=== PATIENT | female | born 1950 | race American Indian/Alaskan Native ===

== ENCOUNTER 2016-06-10 12:50 | Emergency (ER) | payer OTHER ==
[2016-06-10 14:45] VITALS: BP 132/84
--- NOTE | 2016-06-10 21:42 | Emergency Department Report ---
Entered by RANI GTZ, acting as scribe for MADHAVI OROZCO NP. - General Chief complaint: Skin/Abscess/Foreign Body Stated complaint: LT NECK SWELLING Source: patient Mode of arrival: Ambulatory Limitations: No Limitations - History of Present Illness Initial comments: 65 year old female with a PMHx of fibromyalgia, breast cancer, and arthritis presents to the ED c/o of left facial swelling that began this afternoon at 13: 00. Rates severity 0/10 and describes the left facial swelling as intermittent in quality. Denies fever, chills, nausea, tenderness, vomiting, chest pain, and SOB. Denies any allergies or new diets. NKDA. HAYDEN complaint: other (swelling to left mandibular area) -: This afternoon Time: 13:00 Tetanus Up to Date: unsure Location: face (left mandibular area) Severity: mild Severity scale (0 -10): 0 Consistency: intermittent Improves with: none Worsens with: none Context: none Associated symptoms: denies other symptoms, other (left facial swelling) Treatments Prior to Arrival: none - Related Data Previous Rx's Medication Instructions Recorded Last Taken Type Prednisone [predniSONE] 40 mg PO QDAY 5 Days 06/10/16 Unknown Rx Allergies Allergy/AdvReac Type Severity Reaction Status Date / Time No Known Allergies Allergy Unverified 06/10/16 12:58 Abscess Boil HPI - HPI Chief Complaint: Skin/Abscess/Foreign Body Stated Complaint: LT NECK SWELLING Duration: Today (13:00) Location: Other (left mandibular area) Severity: Mild History: No Fever, No Pain, No Purulent Drainage, No Numbness, No Foreign Body, No Previous History, No Insect Bite Home Medications: Previous Rx's Medication Instructions Recorded Last Taken Type Prednisone [predniSONE] 40 mg PO QDAY 5 Days 06/10/16 Unknown Rx Allergies/Adverse Reactions: Allergies Allergy/AdvReac Type Severity Reaction Status Date / Time No Known Allergies Allergy Unverified 06/10/16 12:58 ED Review of Systems Comment: All other systems reviewed and negative Constitutional: denies: chills, fever, other (tingling) Eyes: denies: eye pain, vision change ENT: other (minimal swelling to left mandibular area). denies: throat pain Respiratory: denies: cough, orthopnea, shortness of breath, SOB with exertion, SOB at rest, stridor, wheezing Cardiovascular: denies: chest pain, palpitations, dyspnea on exertion, orthopnea , syncope Endocrine: no symptoms reported Gastrointestinal: denies: abdominal pain, nausea, vomiting Musculoskeletal: joint swelling (left facial swelling) Skin: denies: rash Neurological: denies: headache, numbness ED Past Medical Hx - Past Medical History Hx of Cancer: Yes (Breast) Hx Arthritis: Yes Additional medical history: Fibromyalgia - Surgical History Past Surgical History?: No - Social History Smoking Status: Never Smoker Substance Use Type: Alcohol - Medications Home Medications: Home Medications Medication Instructions Recorded Confirmed Last Taken Type Prednisone [predniSONE] 40 mg PO QDAY 5 Days 06/10/16 Unknown Rx ED Physical Exam - General Limitations: No Limitations General appearance: alert, in no apparent distress - Head Head exam: Present: atraumatic, normocephalic - Eye Eye exam: Present: normal appearance, EOMI Pupils: Present: normal accommodation - ENT ENT exam: Present: normal exam, mucous membranes moist, other (minimal swelling to left mandibular area) - Expanded ENT Exam Expanded Ear exam: Present: normal external inspection Mouth exam: Present: normal external inspection, other (minimal swelling to left mandibular area) Teeth exam: Present: normal inspection Throat exam: Positive: normal inspection - Neck Neck exam: Present: normal inspection - Respiratory Respiratory exam: Present: normal lung sounds bilaterally. Absent: respiratory distress, wheezes, rales, rhonchi, stridor - Cardiovascular Cardiovascular Exam: Present: regular rate, normal rhythm. Absent: systolic murmur, diastolic murmur, rubs, gallop - GI/Abdominal GI/Abdominal exam: Present: soft, normal bowel sounds. Absent: distended, tenderness, guarding, rebound, rigid - Extremities Exam Extremities exam: Present: normal inspection, full ROM, normal capillary refill. Absent: tenderness, pedal edema, joint swelling, calf tenderness - Back Exam Back exam: Present: normal inspection, full ROM. Absent: tenderness, CVA tenderness (R), CVA tenderness (L) - Neurological Exam Neurological exam: Present: alert, oriented X3, CN II-XII intact, normal gait - Psychiatric Psychiatric exam: Present: normal affect, normal mood - Skin Skin exam: Present: warm, dry, intact. Absent: rash - Other Other exam information: No pus, drainge, or swelling in the oropharynx. No signs of gingivitis. No dental caries present. ED Course Vital Signs 06/10/16 12:58 Temperature 98.0 F Pulse Rate 102 H Respiratory 20 Rate Blood Pressure 135/91 O2 Sat by Pulse 99 Oximetry Vital Signs 06/10/16 06/10/16 12:58 14:39 Temperature 98.0 F Pulse Rate 102 H 76 Respiratory 20 Rate Blood Pressure 135/91 O2 Sat by Pulse 99 Oximetry - Reevaluation(s) Reevaluation #1: 06/10/16 14:28 Dr. Clayton has been consulted and assessed the patient. Agrees with d/c and plan of care for d/c. No further testing required at this visit. ED Medical Decision Making - Medical Decision Making Ed course: 65 year old female that presents with left swelling of the parotid gland 1- after full assessment with Dr. Clayton, we came to conclusion not to perform further testing. 2-Patient received Solu-Medrol IM 40 mg in the ED. 3- patient received prednisone 40 mg by mouth for 5 days at the time of discharge. 4- I instructed the patient to follow up with her primary care doctor in 2-3 days or if symptoms worsen to report back to emergency room/primary-care doctor. 5- at the time of discharge the patient does not seem toxic or ill in appearance. No signs of distress noted. Patient agrees to discharge plan and treatment. No further questions noted by the patient. ED Disposition Clinical Impression: Enlarged parotid gland Disposition: DISCHARGED TO HOME OR SELFCARE Is pt being admited?: No Does the pt Need Aspirin: No Condition: Stable Instructions: Prednisone (By mouth) Additional Instructions: Follow-up with your primary care doctor in 2-3 days or if symptoms worsen report bouts emergency room/primary care doctor. Take prednisone as prescribed for 5 days. Prescriptions: Prednisone [predniSONE] 40 mg PO QDAY 5 Days Referrals: WOOD BERNAL MD [Primary Care Provider] - 3-5 Days ANDREWS ROGERS MD [Referring] - 3-5 Days DENIS FLORENTINO MD [Referring] - 3-5 Days ANJELICA CARTY MD [Referring] - 3-5 Days VU ZUNIGA MD [Referring] - 3-5 Days [facility] [Outside] - 3-5 Days [facility] [place] [Outside] - 3-5 Days Forms: Work/School Release Form(ED) This documentation as recorded by the scribTRESA boyd JASMINE,accurately reflects the service I personally performed and the decisions made by me,MADHAVI OROZCO, MAGALI.
== END 2016-06-10 14:44 | disposition home or self-care (01) ==
LOC: ED 12:50
DX: R59.9 Enlarged lymph nodes, unspecified (principal)
CPT/HCPCS: 96372; 99282; J2920

== ENCOUNTER 2016-11-08 14:44 | Emergency (ER) | payer OTHER ==
--- NOTE | 2016-11-08 14:57 | Emergency Department Report ---
Stated Complaint: PAIN IN GROIN Time Seen by Provider: 11/08/16 14:52 - HPI History of Present Illness: PT thinks she is having arthritis pain in her groin. PT states that she had XRs last week. - ROS Review of Systems: - fever - dysuria + lbp - rash - Exam Physical Exam: pt looks well, nontoxic abd soft and not tender MSE screening note: Focused history and physical exam performed. Due to findings the following was ordered: lab ED Disposition for MSE Condition: Stable
[2016-11-08 15:00] VITALS: BP 118/69
[2016-11-08 15:26] LABS: Bilirubin,Urine NEG (Negative); Blood,Urine SM (Negative); Ketones,Urine NEG (Negative); Leukocyte Esterase,Urine LG (Negative); Mucus,Urine FEW /HPF; Nitrite,Urine NEG (Negative); Protein,Urine <15 mg/dL mg/dL (Negative); Urobilinogen,Urine < 2.0 mg/dL (<2.0)
--- NOTE | 2016-11-08 17:39 | Emergency Department Report ---
ED Female HPI - General Chief complaint: Pain General Stated complaint: PAIN IN GROIN Time Seen by Provider: 11/08/16 14:52 Source: patient Mode of arrival: Ambulatory Limitations: No Limitations - History of Present Illness Initial comments: 66-year-old female presents with complaint of one week of slight suprapubic discomfort and slight increased urinary frequency. Patient is unsure if she has had some vaginal discharge. Patient denies abdominal pain nausea vomiting flank pain. Patient is awake alert and oriented 3 not in acute distress nontoxic-appearing MD Complaint: pelvic pain Onset/Timin -: week(s) Location: suprapubic Radiation: non-radiating Severity: mild Quality: burning Consistency: intermittent Improves with: none Worsens with: none Are you Now?: No - Related Data Previous Rx's Medication Instructions Recorded Last Taken Type Prednisone [predniSONE] 40 mg PO QDAY 5 Days 06/10/16 Unknown Rx Nitrofurantoin [place]/M-Cryst 100 mg PO Q12HR #14 capsule 11/08/16 Unknown Rx [Macrobid CAP] Allergies Allergy/AdvReac Type Severity Reaction Status Date / Time No Known Allergies Allergy Unverified 06/10/16 12:58 ED Review of Systems ROS: Stated complaint: PAIN IN GROIN Other details as noted in HPI Constitutional: denies: chills, fever Eyes: denies: eye pain, eye discharge, vision change ENT: denies: ear pain, throat pain Respiratory: denies: cough, shortness of breath, wheezing Cardiovascular: denies: chest pain, palpitations Endocrine: no symptoms reported Gastrointestinal: denies: abdominal pain, nausea, diarrhea Genitourinary: urgency (for 1 week). denies: dysuria, discharge Musculoskeletal: denies: back pain, joint swelling, arthralgia Skin: denies: rash, lesions Neurological: denies: headache, weakness, paresthesias Psychiatric: denies: anxiety, depression Hematological/Lymphatic: denies: easy bleeding, easy bruising ED Past Medical Hx - Past Medical History Previous Medical History?: Yes Hx of Cancer: Yes (breast) Hx Arthritis: Yes Additional medical history: Fibromyalgia, - Surgical History Past Surgical History?: Yes Additional Surgical History: Left chest port 2007 for chemo - Social History Smoking Status: Former Smoker Substance Use Type: Alcohol, Prescribed - Medications Home Medications: Home Medications Medication Instructions Recorded Confirmed Last Taken Type Prednisone [predniSONE] 40 mg PO QDAY 5 Days 06/10/16 Unknown Rx Nitrofurantoin [place]/M-Cryst 100 mg PO Q12HR #14 capsule 11/08/16 Unknown Rx [Macrobid CAP] ED Physical Exam - General Limitations: No Limitations General appearance: alert, in no apparent distress - Head Head exam: Present: atraumatic, normocephalic - Eye Eye exam: Present: normal appearance, PERRL, EOMI - ENT ENT exam: Present: mucous membranes moist - Neck Neck exam: Present: normal inspection - Respiratory Respiratory exam: Present: normal lung sounds bilaterally. Absent: respiratory distress - Cardiovascular Cardiovascular Exam: Present: regular rate, normal rhythm. Absent: systolic murmur, diastolic murmur, rubs, gallop - GI/Abdominal GI/Abdominal exam: Present: soft (abdomen soft nontender nondistended all 4 quadrants), normal bowel sounds - External exam: Present: normal external exam Speculum exam: Present: normal speculum exam Bi-manual exam: Present: normal bi-manual exam - Extremities Exam Extremities exam: Present: normal inspection - Back Exam Back exam: Present: normal inspection - Neurological Exam Neurological exam: Present: alert, oriented X3, CN II-XII intact, normal gait - Psychiatric Psychiatric exam: Present: normal affect, normal mood - Skin Skin exam: Present: warm, dry, intact, normal color. Absent: rash ED Course Vital Signs 11/08/16 14:55 Temperature 98.2 F Pulse Rate 94 H Respiratory 20 Rate Blood Pressure 118/69 O2 Sat by Pulse 97 Oximetry ED Medical Decision Making - Medical Decision Making A/P: Cystitis 1-urinalysis shows WBCs, Cossette esterase, in context of suprapubic discomfort and increased urinary frequency will treat empirically with Macrobid for UTI, urine culture sent 2-wet prep unremarkable 3- case discussed with ED attending before discharge Critical care attestation.: If time is entered above; I have spent that time in minutes in the direct care of this critically ill patient, excluding procedure time. ED Disposition Clinical Impression: Cystitis Disposition: DC-01 TO HOME OR SELFCARE Is pt being admited?: No Does the pt Need Aspirin: No Condition: Stable Instructions: Urinary Tract Infection in Women (ED) Prescriptions: Nitrofurantoin [place]/M-Cryst [Macrobid CAP] 100 mg PO Q12HR #14 capsule Referrals: [facility] [Outside] - 3-5 Days [facility] [Outside] - 3-5 Days [facility] [Provider Group] - 3-5 Days Time of Disposition: 18:47
== END 2016-11-08 18:54 | disposition home or self-care (01) ==
LOC: ED 14:44
DX: N30.90 Cystitis, unspecified without hematuria (principal)
CPT/HCPCS: 81001; 87210

== ENCOUNTER 2018-11-26 12:25 | Emergency (ER) | payer OTHER ==
[2018-11-26 12:41] VITALS: BP 131/80
--- NOTE | 2018-11-26 12:42 | Emergency Department Report ---
Blank Doc - Documentation Documentation: 68-year-old female that presents with left sided neck pain. Denies any injuries or trauma. This initial assessment/diagnostic orders/clinical plan/treatment(s) is/are subject to change based on patient's health status, clinical progression and re- assessment by fellow clinical providers in the ED. Further treatment and workup at subsequent clinical providers discretion. Patient/guardians urged not to elope from the ED as their condition may be serious if not clinically assessed and managed. Initial orders include: 1- Patient sent to [facility] for further evaluation and treatment
[2018-11-26] MEDS ORDERED: FLEXERIL PO ONE (15:55)
[2018-11-26] MEDS ORDERED: TORADOL IM ONE (15:56)
--- NOTE | 2018-11-26 16:01 | Emergency Department Report ---
ED Neck Pain HPI Chief Complaint: Neck Pain/Injury Stated Complaint: LFT SIDE NECK SPASM/PAIN Time Seen by Provider: 11/26/18 12:41 Neck Pain Location: Lateral Neck (left side) Severity: moderate Mechanism: Awkward Position, Unsure Symptoms: Yes Pain with Movement, No Radiation to Left Upper Ext, No Radiation to Right Upper Ext, No Numbness, No Weakness, No Previous History Other History: Is a 68-year-old female who presents to ED complaining of left- sided neck pain that began today morning when she woke up. Patient states that she currently takes medication for muscle spasm and asthma shown any relief. Patient denies any trauma injuries to the neck. Patient states that neck is painful with movements of the left. ED Review of Systems ROS: Stated complaint: LFT SIDE NECK SPASM/PAIN Other details as noted in HPI Comment: All other systems reviewed and negative ED Past Medical Hx - Past Medical History Previous Medical History?: Yes Hx Arthritis: Yes Additional medical history: Fibromyalgia, - Surgical History Past Surgical History?: Yes Additional Surgical History: Left chest port 2008 for chemo - Social History Smoking Status: Former Smoker Substance Use Type: Alcohol - Medications Home Medications: Home Medications Medication Instructions Recorded Confirmed Last Taken Type predniSONE 40 mg PO QDAY 5 Days tab 06/10/16 Unknown Rx Nitrofurantoin [place]/M-Cryst 100 mg PO Q12HR #14 capsule 11/08/16 Unknown Rx [Macrobid CAP] Benzonatate [Tessalon Perles] 100 mg PO Q8HR #30 capsule 11/26/18 Unknown Rx Cyclobenzaprine [Flexeril] 10 mg PO QHS PRN #20 tablet 11/26/18 Unknown Rx Neck Pain Exam - Exam General: Vital signs noted. No distress. Alert and acting appropriately. HEENT: No Facial Pain, No Scalp Tenderness, No Contusion, No Abrasion, No Laceration Neck Pain: Yes Left Paraspinal Tenderness, Yes Pain with Rotation Left, No Midline Tenderness, No Right Paraspinal Tenderness, No Right Trapezius Tenderness, No Left Trapezius Tenderness, No Pain with Rotation Right, No Pain with Extension, No Pain with Flexion, No pain with R Lateral Flexion, No Pain with L Lateral Flexion Chest: Yes Clear Lung Sounds, No Pain with Respirations Heart: Yes Regular, No Murmur Back: No Thoracic Tenderness, No Lumbar Tenderness Neuro: No Numbness, No Weakness, No Normal Reflexes, No Radicular Deficits Exam: Patent airways. Patient on the neurological deficit. No facial droop., ED Course Vital Signs 11/26/18 12:36 Temperature 98.3 F Pulse Rate 104 H Respiratory 16 Rate Blood Pressure 131/80 O2 Sat by Pulse 98 Oximetry ED Medical Decision Making - Medical Decision Making 68-year-old female presents with cervical muscle strain/spasm Critical care attestation.: If time is entered above; I have spent that time in minutes in the direct care of this critically ill patient, excluding procedure time. ED Disposition Clinical Impression: Cervical muscle strain, Neck muscle spasm Disposition: DC- TO HOME OR SELFCARE Is pt being admited?: No Does the pt Need Aspirin: No Condition: Stable Instructions: Muscle Strain (ED), Trigger Point Pain (ED), Cervical Radiculopathy (ED) Additional Instructions: Make sure to follow up with the primary care physician as discussed. Take all your medications as you've been prescribed. If you have any worsening symptoms or develop new symptoms please return to ED immediately. Prescriptions: Cyclobenzaprine [Flexeril] 10 mg PO QHS PRN #20 tablet PRN Reason: Muscle Spasm Benzonatate [Tessalon Perles] 100 mg PO Q8HR #30 capsule Referrals: ,[facility] [Other] - 3-5 Days CYN CALLEJAS MD [Staff Physician] - 3-5 Days Forms: Accompanied Note, Work/School Release Form(ED) Time of Disposition: 16:53
== END 2018-11-26 17:47 | disposition home or self-care (01) ==
LOC: ED 12:25
DX: S16.1XXA Strain of muscle, fascia and tendon at neck level, initial encounter (principal); M62.838 Other muscle spasm; M19.90 Unspecified osteoarthritis, unspecified site; Z87.891 Personal history of nicotine dependence; Z98.890 Other specified postprocedural states; Z79.899 Other long term (current) drug therapy; X58.XXXA Exposure to other specified factors, initial encounter; Y93.89 Activity, other specified; Y92.89 Other specified places as the place of occurrence of the external cause; Y99.8 Other external cause status
CPT/HCPCS: 96372; 99283; J1885

== ENCOUNTER 2019-04-02 09:39 | Emergency (ER) | payer OTHER ==
[2019-04-02 09:52] VITALS: BP 103/66
[2019-04-02] MEDS ORDERED: predniSONE 20 MG TAB PO ONE (12:25)
[2019-04-02] MEDS ORDERED: KETOROLAC 60 MG/2 ML INJ IM ONE (12:25)
--- NOTE | 2019-04-02 13:14 | Emergency Department Report ---
ED Back Pain/Injury HPI - General Chief Complaint: Extremity Injury, Lower Stated Complaint: HIP PAIN Time Seen by Provider: 04/02/19 11:48 Source: patient Limitations: No Limitations - History of Present Illness Initial Comments: This is a 68-year-old female nontoxic, well nourished in appearance, no acute signs of distress presents to the ED with c/o of acute on chronic lower back pain. Patient stated sees a pain specialist for herniated disc in the lumbar spine. Patient states has history of sciatica nerve pain which is similar symptoms as today. Patient states that pain radiates through to his right lower extremity. Patient denies any trauma. Denies any bladder or bowel instability. Patient denies any urinary symptoms. Denies any fever, chills, nausea, vomitin g, headache, stiff neck, chest pain or shortness of breath. Patient denies any numbness or tingling. Denies any drug allergies. MD Complaint: back pain -: days(s) Similar Symptoms Previously: Yes Radiation: right leg Severity: mild Severity scale (0 -10): 8 Quality: aching Consistency: intermittent Improves With: immobilization, sitting upright Worsens With: movement, walking Context: while lifting, turning/twisting Associated Symptoms: denies other symptoms. denies: confusion, weakness, chest pain, numbness, difficulty walking, cough, difficulty urinating, diaphoresis, incontinence, fever/chills, constipation, headaches, abdominal pain, loss of appetite, malaise, nausea/vomiting, rash, seizure, shortness of breath, syncope - Related Data Previous Rx's Medication Instructions Recorded Last Taken Type predniSONE 40 mg PO QDAY 5 Days tab 06/10/16 Unknown Rx Nitrofurantoin [place]/M-Cryst 100 mg PO Q12HR #14 capsule 11/08/16 Unknown Rx [Macrobid CAP] Benzonatate [Tessalon Perles] 100 mg PO Q8HR #30 capsule 11/26/18 Unknown Rx Cyclobenzaprine [Flexeril] 10 mg PO QHS PRN #20 tablet 11/26/18 Unknown Rx Cyclobenzaprine HCl [Flexeril 5 MG 5 mg PO QHS PRN #10 tab 04/02/19 Unknown Rx TAB] Ibuprofen [Motrin] 600 mg PO Q8H PRN #10 tablet 04/02/19 Unknown Rx Allergies Allergy/AdvReac Type Severity Reaction Status Date / Time cashew nut Allergy Vomiting Verified 04/02/19 09:47 crab Allergy Vomiting Verified 04/02/19 09:47 fire ant Allergy Hives Verified 04/02/19 09:47 ED Review of Systems ROS: Stated complaint: HIP PAIN Other details as noted in HPI Constitutional: denies: chills, fever Eyes: denies: eye pain, eye discharge, vision change ENT: denies: ear pain, throat pain Respiratory: denies: cough, shortness of breath, wheezing Cardiovascular: denies: chest pain, palpitations Endocrine: no symptoms reported Gastrointestinal: denies: abdominal pain, nausea, diarrhea Genitourinary: denies: urgency, dysuria, discharge Musculoskeletal: denies: back pain, joint swelling, arthralgia Skin: denies: rash, lesions Neurological: denies: headache, weakness, paresthesias Psychiatric: denies: anxiety, depression Hematological/Lymphatic: denies: easy bleeding, easy bruising ED Past Medical Hx - Past Medical History Previous Medical History?: Yes Hx Arthritis: Yes Additional medical history: Fibromyalgia, - Surgical History Past Surgical History?: Yes Additional Surgical History: Left chest port 2008 for chemo - Social History Smoking Status: Former Smoker Substance Use Type: Alcohol - Medications Home Medications: Home Medications Medication Instructions Recorded Confirmed Last Taken Type predniSONE 40 mg PO QDAY 5 Days tab 06/10/16 Unknown Rx Nitrofurantoin [place]/M-Cryst 100 mg PO Q12HR #14 capsule 11/08/16 Unknown Rx [Macrobid CAP] Benzonatate [Tessalon Perles] 100 mg PO Q8HR #30 capsule 11/26/18 Unknown Rx Cyclobenzaprine [Flexeril] 10 mg PO QHS PRN #20 tablet 11/26/18 Unknown Rx Cyclobenzaprine HCl [Flexeril 5 MG 5 mg PO QHS PRN #10 tab 04/02/19 Unknown Rx TAB] Ibuprofen [Motrin] 600 mg PO Q8H PRN #10 tablet 04/02/19 Unknown Rx ED Physical Exam - General Limitations: No Limitations General appearance: alert, in no apparent distress - Head Head exam: Present: atraumatic, normocephalic - Neck Neck exam: Present: normal inspection, full ROM. Absent: tenderness, meningismus, lymphadenopathy - GI/Abdominal GI/Abdominal exam: Present: soft, normal bowel sounds. Absent: distended, tenderness, guarding, rebound, rigid, diminished bowel sounds - Extremities Exam Extremities exam: Present: normal inspection, full ROM, normal capillary refill. Absent: tenderness, joint swelling - Back Exam Back exam: Present: normal inspection, full ROM, paraspinal tenderness (right sided lumbar paraspinal). Absent: tenderness, CVA tenderness (R), CVA tenderness (L), muscle spasm, vertebral tenderness, rash noted - Expanded Back Exam Expanded Back exam: Absent: saddle anesthesia Back exam: Negative Straight Leg Raising: Left, Right - Neurological Exam Neurological exam: Present: alert, oriented X3, normal gait - Psychiatric Psychiatric exam: Present: normal affect, normal mood - Skin Skin exam: Present: warm, dry, intact, normal color. Absent: rash ED Course Vital Signs 04/02/19 09:51 Temperature 98.1 F Pulse Rate 95 H Respiratory 18 Rate Blood Pressure 103/66 [Right] O2 Sat by Pulse 97 Oximetry - Reevaluation(s) Reevaluation #1: 04/02/19 13:14 Patient is speaking in full sentences with no signs of distress noted. ED Medical Decision Making - Medical Decision Making This is a 68-year-old female that presents with low back strain. Patient is stable was examined by me. There is no spinal tenderness. There is no cauda equina syndrome during examination. No bladder or bowel instability. Patient received Toradol 60 mg IM and prednisone in the ED which stated that her symptoms has resolved and subsided. Patient is discharged with muscle relaxant and Motrin. Patient was instructed not to operate any machinery while taking muscle relaxant as they cause her drowsiness. Patient was referred to Follow-up with a primary care doctor in 3-5 days or if symptoms worsen and continue return to emergency room as soon as possible. At time of discharge, the patient does not seem toxic or ill in appearance. No acute signs of distress noted. Patient agrees to discharge treatment plan of care. No further questions noted by the patient. This chart is dictated with using [email or web address] Critical care attestation.: If time is entered above; I have spent that time in minutes in the direct care of this critically ill patient, excluding procedure time. ED Disposition Clinical Impression: Low back strain Disposition: DC-01 TO HOME OR SELFCARE Is pt being admited?: No Does the pt Need Aspirin: No Condition: Stable Instructions: Low Back Strain (ED), Cyclobenzaprine (By mouth) Additional Instructions: Follow-up with your primary care doctor in 3-5 days or if symptoms worsen such as bladder or bowel stability, chest pain, short of breath, numbness or tingling sensation in extremities, headache, dizziness, visual changes, nausea vomiting, or abdominal pain, return back to emergency room as was possible. Take ibuprofen and Flexeril as prescribed. Do not operate heavy machinery while taking Flexeril due to sedation Prescriptions: Cyclobenzaprine HCl [Flexeril 5 MG TAB] 5 mg PO QHS PRN #10 tab PRN Reason: Muscle Spasm Ibuprofen [Motrin] 600 mg PO Q8H PRN #10 tablet PRN Reason: Pain Referrals: PRIMARY CAREMD [Primary Care Provider] - 3-5 Days CAROLYN ENRIQUEZ MD [Staff Physician] - 3-5 Days [facility] [Outside] - 3-5 Days
== END 2019-04-02 13:37 | disposition home or self-care (01) ==
LOC: ED 09:39
DX: S39.012A Strain of muscle, fascia and tendon of lower back, initial encounter (principal); G89.29 Other chronic pain; M79.7 Fibromyalgia; M19.90 Unspecified osteoarthritis, unspecified site; Z87.891 Personal history of nicotine dependence; Z91.018 Allergy to other foods; Z98.890 Other specified postprocedural states; X58.XXXA Exposure to other specified factors, initial encounter; Y93.89 Activity, other specified; Y92.89 Other specified places as the place of occurrence of the external cause; Y99.8 Other external cause status
CPT/HCPCS: 96372; 99282; J1885; J7512